=== PATIENT | male | born 1980 | race Caucasian/White ===

== ENCOUNTER → 2023-07-28 | Outpatient (CLI) | payer OTHER ==
[~2023-07-28] MED LIST: GADOTERATE MEGLUMINE 10 MMOL/20 ML VIAL IVP ONE
== END | disposition home or self-care (01) ==
LOC: RADMN 14:09
PROVIDERS: ATTEND Family Medicine
DX: R56.9 Unspecified convulsions (principal)
CPT/HCPCS: 70553; A9575